=== PATIENT | male | born 1985 | race Caucasian/White ===

== ENCOUNTER → 2020-12-15 08:06 | Outpatient (CLI) | payer BC, SELFPAY ==
[2020-12-15] MEDS: COVID-19 VACC #1, MRNA(MOD) 100 MCG/0.5 ML VIAL IM (08:20)
== END ==
PROVIDERS: PCP Family Medicine; Visit Provider Internal Medicine
DX: Z23 Encounter for immunization (principal)
CPT/HCPCS: 0011A; 91301

== ENCOUNTER → 2021-01-12 08:05 | Outpatient (CLI) | payer BC, SELFPAY ==
[2021-01-12] MEDS: COVID-19 VACC #2, MRNA(MOD) 100 MCG/0.5 ML VIAL IM (08:11)
== END ==
PROVIDERS: PCP Family Medicine; Visit Provider Internal Medicine
DX: Z23 Encounter for immunization (principal)
CPT/HCPCS: 0012A; 91301

== ENCOUNTER → 2021-08-31 09:27 | Outpatient (CLI) | payer BC, SELFPAY ==
[2021-08-31 09:54] LABS: COVID19 -Nasal RAPID Negative (Negative)
== END ==
PROVIDERS: PCP Family Medicine; Visit Provider Nurse Practitioner Family
DX: Z20.822 Contact with and (suspected) exposure to COVID-19 (principal)
CPT/HCPCS: 87635

== ENCOUNTER → 2021-10-26 14:17 | Outpatient (CLI) | payer BC, SELFPAY ==
--- NOTE | 2021-11-17 09:25 | PM.CARDMON.1 ---
[employer] Report Referral & Results Date Patient Seen: 10/26/21 Requesting provider: Aram Lou Indication: Palpitations Duration of monitoring (days): 13 Diary information: There were 29 patient triggered events and 6 patient diary entries Patient triggered events were variably associated with (within 45 seconds) sinus rhythm, simple PACs and simple PVCs Patient diary events were associated with sinus rhythm only Data: Minimum heart rate identified was 40 beats per minute at 05:06 on 11/07/2021 Maximum heart rate was 153 beats per minute at 16:00 on 10/29/2021 Less than 1% of identified beats were ventricular or supraventricular ectopic in origin, which would classify them as rare. There was 1 run of SVT that was 4 beats in duration at a rate of 152 beats per minute No atrial fibrillation or pauses identified on this study Impression: 13 day shirring tender demonstrating simple PACs and PVCs without clear correlation between symptoms in any one particular dysrhythmia
== END ==
PROVIDERS: PCP Family Medicine; Referring Provider Family Medicine; Visit Provider Family Medicine
DX: R00.2 Palpitations (principal)
CPT/HCPCS: 93246; 93248